=== PATIENT | female | born 1955 | race Caucasian/White ===

== ENCOUNTER 2022-04-03 21:25 | Emergency (ER) | payer OTHER ==
--- OUTSIDE RECORDS SUMMARY | 2022-04-03 21:28 | XMS REPORT | Continuity of Care Document ---
:1955 Author Organization [facility] t Address [address] [place] [address] Care Team Providers Name Role Phone Nely Munroe DO Attending Clinician NELY MUNROE Attending Clinician Unavailable Payers Payer Name Policy Type Policy Number Effective Date Expiration Date Juan Carlos benavidez [employer] [facility] [employer] [id number] 2021 (MEDICARE 00:00:00 REPLACEMENT HMO) Problems Condition Condition Condition Status Onset Resolution Last Treating Co mments Source Name Details Category Date Date Treatment Clinician Date No known No known Disease Unive rs active active ity of problems problems [facility] Allergies, Adverse Reactions, Alerts Allergy Allergy Status Severity Reaction(s) Onset Inactive Treating Comm ents Source Name Type Date Date Clinician NO KNOWN Drug Active Univers ALLERGIE Class ity of S [facility] Social History Social Habit Start Date Stop Date Quantity Comments Source Sex Assigned At Uni versity [facility] Smoking Status Start Date Stop Date Source Unknown if ever smoked Universit y [facility] Medications Ordered Filled Start Stop Current Ordering Indication Dosage Frequency Signature Comments Components Source Medication Medication Date Date Medication? Clinician (SIG) Name Name tetanus-dip 2020- No .5mL 0.5 mL, Un rolando htheria 08-29 Intramuscu ity o f toxoids 04:30: 03:30 lar, ONCE, Sanya as (TDVAX) 2-2 00 :00 1 dose, Medic al Lf unit/0.5 Fri Branch mL 08/29/19 at injection 2330, 0.5 mL Routine No known No Univers medications [facility] Immunizations Ordered Filled Immunization Date Status Comments Sourc e Immunization Name Name Td 2019-08-29 Completed [facility] 00:00:00 [facility] Vital Signs Vital Name Observation Time Observation Value Comments Source Systolic blood 2019-08-30 04:28:00 138 mm[Hg] Univer sity of pressure [facility] Diastolic blood 2019-08-30 04:28:00 74 mm[Hg] Unive rsity of pressure [facility] Heart rate 2019-08-30 04:28:00 79 /min [facility] Body temperature 2019-08-30 04:28:00 37.[address] [facility] Respiratory rate 2019-08-30 04:28:00 16 /[facility] saturation in 2019-08-30 04:28:00 98 /min [facility] Arterial blood by [facility] Pulse oximetry Branch BMI 2019-08-30 03:13:11 24.45 kg/m2 [facility] Body height 2019-08-30 03:13:11 160 cm [facility] Body weight 2019-08-30 03:13:11 62.596 kg [facility] Procedures This patient has no known procedures. Encounters Start End Encounter Admission Attending Care Care Encounter Source Date/Time Date/Time Type Type Clinicians Facility Department ID 2021-03-30 2021-03-30 [place] [facility] [id number] [facility] 11:01:00 11:01:00 1117 Medica l Group 2019-08-29 2019-08-29 Emergency FANG Munroe [id number] Univers 22:12:02 23:40:00 [id number] [id number] [facility] 084 Branch 2019-08-29 2019-08-29 Emergency X FANG MUNROE ERT [id number] Univers 22:12:02 22:12:02 NELY bonilla [facility] Results This patient has no known results.
[2022-04-03 22:44] LABS: Urine Blood 1+ (Negative); Urine Glucose Negative (Negative); Urine Protein Negative (Negative); Urine Specific Gravity 1.025 (1.005-1.030); Urine pH 6.5 (5.0-7.0)
[2022-04-03] MEDS ORDERED: MECLIZINE HCL 12.5 MG TAB ONE (22:53)
[2022-04-03 22:54] LABS: Absolute Lymphocytes (CBC) 3.1 K/uL (0.7-4.9); Hematocrit 39.3 % (36.0-45.0); Lymphocytes % 42.8 % (15.3-44.8); MCV 92.1 fL (80-100); MPV 6.9 fL (7.6-11.3); RBC Red Blood Cell Count 4.27 M/uL (3.86-4.86)
[2022-04-03 22:55] LABS: Protime INR 0.91
[2022-04-03 22:57] LABS: Urine Bacteria >50 /HPF (<20); Urine Mucus Slight /HPF (None Seen)
[2022-04-03 23:08] LABS: Magnesium 2.1 mg/dL (1.8-2.4); Potassium 4.2 mmol/L (3.5-5.1); Troponin High Sensitivity 57.4 pg/mL (<58.9)
[2022-04-04] MEDS ORDERED: NA CHLORIDE 0.9% 500 ML ONE (00:30)
[2022-04-04] MEDS ORDERED: CEFTRIAXONE 1000 MG/VIAL ONE (00:30)
--- NOTE | 2022-04-04 01:02 | EDPHYS ---
Physician Documentation [facility] Name: Sherri Saul Age: 67 yrs Sex: Female : 1955 Arrival Date: 04/03/2022 Time: 21:27 Bed 7 Private MD: ED Physician Bartolome Leonard HPI: 04/03 22:20 This 67 yrs old Female presents to ER via Ambulatory with complaints of Dizziness, High cp Blood Pressure, Nausea. 22:20 The patient presents with dizziness, lightheadedness, feeling off balance. Onset: The cp symptoms/episode began/occurred today, about 1830. Context: just prior to the episode the patient experienced no apparent symptoms. 22:20 Associated signs and symptoms: Pertinent positives: nausea, elevated blood pressure, cp Pertinent negatives: abdominal pain, blurred vision, chest pain, confusion, focal weakness, near-syncope, shortness of breath, syncope. 22:20 Severity of symptoms: in the emergency department the symptoms have improved mildly. cp Patient's baseline: Neuro: alert and fully oriented, Motor: no deficits, Ambulation: walks without assistance, Speech: normal. Historical: - Allergies: 21:41 No Known Allergies; jh5 - Immunization history:: Adult Immunizations up to date. - Social history:: Smoking status: Patient reports the use of cigarette tobacco products, smokes one-half pack cigarettes per day. ROS: 22:25 Constitutional: Negative for body aches, chills, fever, poor PO intake. cp 22:25 Eyes: Negative for injury, pain, redness, and discharge. cp 22:25 ENT: Negative for drainage from ear(s), ear pain, sore throat, difficulty swallowing, difficulty handling secretions. 22:25 Cardiovascular: Negative for chest pain, edema, palpitations. 22:25 Respiratory: Negative for cough, shortness of breath, wheezing. 22:25 Abdomen/GI: Negative for abdominal pain, vomiting, diarrhea, constipation. 22:25 : Positive for burning with urination, Negative for hematuria. 22:25 Neuro: Positive for dizziness, Negative for altered mental status, headache, numbness, speech changes, syncope, near syncope, weakness. 22:25 All other systems are negative. Exam: 22:30 Constitutional: The patient appears in no acute distress, alert, awake, comfortable, cp non-diaphoretic, non-toxic, well developed, well nourished. 22:30 Head/Face: Normocephalic, atraumatic. cp 22:30 Eyes: Periorbital structures: appear normal, Pupils: equal, round, and reactive to light and accomodation, Extraocular movements: intact throughout, Conjunctiva: normal, no exudate, no injection, Sclera: no appreciated abnormality, Lids and lashes: appear normal, bilaterally. 22:30 ENT: External ear(s): are unremarkable, Ear canal(s): are normal, clear, TM's: dullness, bilaterally, Nose: is normal, Mouth: Lips: moist, Oral mucosa: pink and intact, moist, Posterior pharynx: Airway: no evidence of obstruction, patent, erythema, is not appreciated, exudate, is not appreciated. 22:30 Neck: ROM/movement: is normal, is supple, without pain, no range of motions limitations. 22:30 Chest/axilla: Inspection: normal. 22:30 Cardiovascular: Rate: normal, Rhythm: regular, Edema: is not appreciated, JVD: is not appreciated. 22:30 Respiratory: the patient does not display signs of respiratory distress, Respirations: normal, no use of accessory muscles, no retractions, labored breathing, is not present, Breath sounds: are clear throughout, no decreased breath sounds, no stridor, no wheezing. 22:30 Abdomen/GI: Inspection: abdomen appears normal, Palpation: abdomen is soft and non-tender, in all quadrants. 22:30 Back: pain, is absent, ROM is normal. 22:30 Neuro: Orientation: to person, place \T\ time. Mentation: is normal, Cerebellar function: is grossly normal, Motor: moves all fours, strength is normal, Sensation: is normal, Gait: is steady. 23:05 ECG was reviewed by the Attending Physician. cp Vital Signs: 21:38 BP 143 / 89; Pulse 76; Resp 16; Temp 98.7; Pulse Ox 100% ; Weight 68.04 kg; Height 5 jh5 ft. 3 in. (160.02 cm); Pain 0/10; 23:14 BP 159 / 81; Pulse 71; Resp 19; Pulse Ox 99% on R/A; kd3 04/04 01:05 BP 152 / 69; Pulse 73; Resp 19; Pulse Ox 99% ; kd3 04/03 21:38 Body Mass Index 26.57 (68.04 kg, 160.02 cm) jh5 NIH Stroke Scale Scores: 04/03 22:30 NIHSS Score: 0 cp MDM: 21:58 Patient medically screened. cp 23:00 Differential diagnosis: cardiac arrhythmia, CVA, GI bleed, hypovolemia, idiopathic cp dizziness, sepsis, TIA. 04/04 00:18 ED course: Patient reports dizziness markedly improved and observed to ambulate to restroom w/o assistance. 01:00 Data reviewed: vital signs, nurses notes, lab test result(s), EKG, radiologic studies, cp CT scan, plain films. 01:00 Test interpretation: by ED physician or midlevel provider: ECG, plain radiologic cp studies. Counseling: I had a detailed discussion with the patient and/or guardian regarding: the historical points, exam findings, and any diagnostic results supporting the discharge/admit diagnosis, lab results, radiology results, the need for outpatient follow up, a family practitioner, to return to the emergency department if symptoms worsen or persist or if there are any questions or concerns that arise at home. Response to treatment: the patient's symptoms have markedly improved after treatment, and as a result, I will discharge patient. 04/03 22:13 Order name: Basic Metabolic Panel; Complete Time: 23:13 04/03 23:13 Interpretation: Normal except: GFR 55. 04/03 22:13 Order name: CBC with Diff; Complete Time: 23:13 04/03 23:14 Interpretation: Normal except: MPV 6.9. 04/03 22:13 Order name: Magnesium; Complete Time: 23:13 04/03 22:13 Order name: PT-INR; Complete Time: 22:59 04/03 22:13 Order name: Troponin HS; Complete Time: 23:13 04/03 23:14 Interpretation: Troponin HS 57.4; Reviewed. 04/03 22:13 Order name: Urine Microscopic Only; Complete Time: 22:59 04/03 22:59 Interpretation: URBC 11-20; UBACT >50. 04/03 22:13 Order name: XRAY Chest (1 view) 04/03 22:13 Order name: CT Head Brain wo Cont 04/03 22:13 Order name: CT Head Angio 04/03 22:13 Order name: CT Neck Angio cp 04/03 22:44 Order name: Urine Dipstick-Ancillary; Complete Time: 22:59 EDMS 04/03 22:59 Interpretation: Normal except: UBLD 1+; UNIT Positive. cp 04/03 22:13 Order name: EKG; Complete Time: 22:13 cp 04/03 22:13 Order name: Cardiac monitoring; Complete Time: 23:06 cp 04/03 22:13 Order name: EKG - Nurse/Tech; Complete Time: 23:06 cp 04/03 22:13 Order name: IV Saline Lock; Complete Time: 22:45 cp 04/03 22:13 Order name: Labs collected and sent; Complete Time: 22:45 cp 04/03 22:13 Order name: O2 Per Protocol; Complete Time: 22:45 cp 04/03 22:13 Order name: O2 Sat Monitoring; Complete Time: 22:45 cp 04/03 22:13 Order name: Urine Dipstick-Ancillary (obtain specimen); Complete Time: 22:45 cp EC/21 23:05 Rate is 68 beats/min. Rhythm is regular. LA interval is normal. QRS interval is normal. cp QT interval is normal. T waves are Inverted in leads II, aVR. Interpreted by me. Reviewed by me. Administered Medications: 23:06 Drug: Meclizine 25 mg Route: PO; kd3 04/04 01:06 Follow up: Response: No adverse reaction kd3 00:34 Drug: Rocephin (cefTRIAXone) 1 grams Route: IV; Rate: calculated rate; Site: right 3 antecubital; 01:06 Follow up: Response: No adverse reaction; IV Status: Completed infusion kd3 00:34 Drug: NS 0.9% 500 ml Route: IV; Rate: bolus; Site: right antecubital; kd3 01:06 Follow up: IV Status: Completed infusion; IV Intake: 500ml kd3 Disposition Summary: 04/04/22 01:02 Discharge Ordered Location: Home cp Problem: new cp Symptoms: have improved cp Condition: Stable cp Diagnosis - Elevated blood-pressure reading, without diagnosis of hypertension cp - Dizziness and giddiness cp - UTI/ Urinary tract infection, site not specified cp Followup: cp - With: Private Physician - When: 1 - 2 days - Reason: Recheck today's complaints Discharge Instructions: - Discharge Summary Sheet cp - Dizziness cp - Urinary Tract Infection, Adult cp - How to Take Your Blood Pressure cp Forms: - Medication Reconciliation Form cp - Thank You Letter cp - Antibiotic Education cp - Prescription Opioid Use cp Prescriptions: - Meclizine 25 mg Oral Tablet - take 1 tablet by ORAL route every 8 hours As needed; 30 tablet; Refills: 0, cp Product Selection Permitted - Zofran 4 mg Oral Tablet - take 1 tablet by ORAL route every 12 hours As needed; 20 tablet; Refills: 0, cp Product Selection Permitted - cefpodoxime 100 mg Oral Tablet - take 1 tablet by ORAL route every 12 hours for 7 days take with food; 14 cp tablet; Refills: 0, Product Selection Permitted NIH Stroke Scale - NIH Stroke Score Date: 04/03/2022 Time: 22:30 Total Score = 0 1a. Level of Consciousness (LOC) - 0(Alert) 1b. Level of Consciousness (LOC) (Month \T\ Age) - 0(Both) 1c. LOC Commands (Open \T\ Closes Eyes/Manugrapher) - 0(Both) 2. Best Gaze (Lateral Gaze Paresis) - 0(Normal) 3. Visual Field Loss - 0(No visual loss) 4. Facial Palsy - 0(Normal) 5a. Left Arm: Motor (10-second hold) - 0(No drift) 5b. Right Arm: Motor (10-second hold) - 0(No drift) 6a. Left Leg: Motor (5-second hold - always test supine) - 0(No drift) 6b. Right Leg: Motor (5-second hold - always test supine) - 0(No drift) 7. Limb Ataxia (finger/nose \T\ heel/waller - test with eyes open) - 0(Absent) 8. Sensory Loss (pinprick arms/legs/face) - 0(Normal) 9. Best Language: Aphasia (description/naming/reading) - 0(No aphasia) 10. Dysarthria (speech clarity - read or repeat words) - 0(Normal) 11. Extinction and Inattention (visual/tactile/auditory/spatial/personal) - 0(No abnormality) Initials: cp Signatures: Dispatcher [employer] EDMS Bartolome Douglas PA PA cp Rees, Jessica RN RN jh5 Charisse, Tammy, RN RN kd3
--- NOTE | 2022-04-04 01:02 | ER ---
Nurse's Notes [facility] Name: Sherri Saul Age: 67 yrs Sex: Female : 1955 Arrival Date: 04/03/2022 Time: 21:27 Bed 7 Private MD: Diagnosis: Elevated blood-pressure reading, without diagnosis of hypertension;Dizziness and giddiness;UTI/ Urinary tract infection, site not specified Presentation: 04/03 21:38 Chief complaint: Patient states: dizziness x3 hours and high blood pressure, i took jh5 650mg of aspirin at 2044. Coronavirus screen: Vaccine status: Patient reports being unvaccinated. Client denies travel out of the [place] in the last 14 days. Ebola Screen: Patient negative for fever greater than or equal to 101.5 degrees Fahrenheit, and additional compatible Ebola Virus Disease symptoms Patient denies exposure to infectious person. Patient denies travel to an Ebola-affected area in the 21 days before illness onset. Initial Sepsis Screen: Does the patient meet any 2 criteria? No. Patient's initial sepsis screen is negative. Does the patient have a suspected source of infection? No. Patient's initial sepsis screen is negative. Risk Assessment: Do you want to hurt yourself or someone else? Patient reports no desire to harm self or others. 21:38 Method Of Arrival: Ambulatory [facility] 21:38 Acuity: MIKE 3 5 23:14 Onset of symptoms was April 03, 2022. kd3 Triage Assessment: 21:41 General: Appears in no apparent distress. comfortable, slender, well groomed, well jh5 developed, well nourished, Behavior is calm, cooperative, appropriate for age. Pain: Denies pain. GI: Reports nausea. Historical: - Allergies: 21:41 No Known Allergies; jh5 - Immunization history:: Adult Immunizations up to date. - Social history:: Smoking status: Patient reports the use of cigarette tobacco products, smokes one-half pack cigarettes per day. Screenin:14 Abuse screen: Denies threats or abuse. Denies injuries from another. Nutritional kd3 screening: No deficits noted. Tuberculosis screening: No symptoms or risk factors identified. Fall Risk None identified. IV access (20 points). Assessment: 23:13 General: Appears in no apparent distress. Behavior is calm, cooperative. Neuro: Level kd3 of Consciousness is awake, alert, obeys commands, Oriented to person, place, time, situation, Reports dizziness. Cardiovascular: Patient's skin is warm and dry. Respiratory: Airway is patent Trachea midline Respiratory effort is even, unlabored, Respiratory pattern is regular, symmetrical. GI: Abdomen is non-distended. Vital Signs: 21:38 BP 143 / 89; Pulse 76; Resp 16; Temp 98.7; Pulse Ox 100% ; Weight 68.04 kg; Height 5 5 ft. 3 in. (160.02 cm); Pain 0/10; 23:14 BP 159 / 81; Pulse 71; Resp 19; Pulse Ox 99% on R/A; kd3 04/04 01:05 BP 152 / 69; Pulse 73; Resp 19; Pulse Ox 99% ; kd3 04/03 21:38 Body Mass Index 26.57 (68.04 kg, 160.02 cm) 5 NIH Stroke Scale Scores: 04/03 22:30 NIHSS Score: 0 cp ED Course: 21:27 Patient arrived in ED. jj6 21:41 Triage completed. jh5 21:41 Arm band placed on right wrist. jh5 21:55 Aiden Cardenas, NOEMI is Primary Nurse. as6 21:58 Bartolome Douglas PA is PHCP. cp 21:58 Bartolome Leonard MD is Attending Physician. cp 22:45 Urine Microscopic Only Sent. kd3 22:45 Troponin HS Sent. kd3 22:45 PT-INR Sent. kd3 22:45 Magnesium Sent. kd3 22:45 CBC with Diff Sent. kd3 22:45 Basic Metabolic Panel Sent. kd3 22:54 XRAY Chest (1 view) In Process Unspecified. EDMS 23:14 Patient has correct armband on for positive identification. kd3 23:14 No provider procedures requiring assistance completed. Inserted saline lock: 22 gauge kd3 in right antecubital area, using aseptic technique. Blood collected. 23:55 CT Head Brain wo Cont In Process Unspecified. EDMS 23:55 CT Head Angio In Process Unspecified. EDMS 23:55 CT Neck Angio In Process Unspecified. EDMS 04/04 01:05 IV discontinued, intact, bleeding controlled, No redness/swelling at site. Pressure kd3 dressing applied. Administered Medications: 04/03 23:06 Drug: Meclizine 25 mg Route: PO; kd3 04/04 01:06 Follow up: Response: No adverse reaction kd3 00:34 Drug: Rocephin (cefTRIAXone) 1 grams Route: IV; Rate: calculated rate; Site: right [facility] antecubital; 01:06 Follow up: Response: No adverse reaction; IV Status: Completed infusion kd3 00:34 Drug: NS 0.9% 500 ml Route: IV; Rate: bolus; Site: right antecubital; kd3 01:06 Follow up: IV Status: Completed infusion; IV Intake: 500ml kd3 Medication: 04/03 23:14 VIS not applicable for this client. kd3 Intake: 04/04 01:06 IV: 500ml; Total: 500ml. kd3 Outcome: 01:02 Discharge ordered by . cp 01:05 Discharged to home via wheelchair. kd3 01:05 Condition: stable 01:05 Discharge instructions given to patient, family, Instructed on discharge instructions, follow up and referral plans. Demonstrated understanding of instructions, follow-up care, medications, Prescriptions given X 01:14 Patient left the ED. kd3 NIH Stroke Scale - NIH Stroke Score Date: 04/03/2022 Time: 22:30 Total Score = 0 1a. Level of Consciousness (LOC) - 0(Alert) 1b. Level of Consciousness (LOC) (Month \T\ Age) - 0(Both) 1c. LOC Commands (Open \T\ Closes Eyes/Compress Trucker) - 0(Both) 2. Best Gaze (Lateral Gaze Paresis) - 0(Normal) 3. Visual Field Loss - 0(No visual loss) 4. Facial Palsy - 0(Normal) 5a. Left Arm: Motor (10-second hold) - 0(No drift) 5b. Right Arm: Motor (10-second hold) - 0(No drift) 6a. Left Leg: Motor (5-second hold - always test supine) - 0(No drift) 6b. Right Leg: Motor (5-second hold - always test supine) - 0(No drift) 7. Limb Ataxia (finger/nose \T\ heel/waller - test with eyes open) - 0(Absent) 8. Sensory Loss (pinprick arms/legs/face) - 0(Normal) 9. Best Language: Aphasia (description/naming/reading) - 0(No aphasia) 10. Dysarthria (speech clarity - read or repeat words) - 0(Normal) 11. Extinction and Inattention (visual/tactile/auditory/spatial/personal) - 0(No abnormality) Initials: cp Signatures: Dispatcher [employer] EDBartolome Macias PA PA cp Jeffries, Jennifer jj6 Lin Oden, RN RN jh5 Aiden Cardenas RN RN as6 Tammy Mcqueen RN RN kd3
[2022-04-04 01:17] VITALS: TEMP 98.7
[2022-04-04 01:19] VITALS: O2SAT 99
[2022-04-04 01:20] VITALS: BP 152/69
--- NOTE | 2022-04-04 13:19 | RAD REPORT ---
EXAM DESCRIPTION: CT - Head angio - 04/04/2022 6:39 am CLINICAL HISTORY: 67 years, Female, Dizziness, non-specific COMPARISON: Previous CT scan of the head performed 04/03/2022 11:28 PM. TECHNIQUE: Multiple transaxial tomograms from the aortic arch through the brain were performed after administration of large bolus of IV contrast for complete opacification of the carotid arteries and intracranial vessels. Subsequent 2-D and 3-D multiplanar reformats, volume rendering technique and maximum intensity projec tion images were generated and reviewed. Stenosis measurements were performed according to NASCET cri sj. CAROTID STENOSIS REFERENCE USING NASCET CRITERIA: % ICA stenosis = (1 - narrowest ICA diameter/diameter of distal cervical ICA) x 100. Mild - <50% stenosis. Moderate - 50-69% stenosis. Severe - 70-94% stenosis. Near occlusion - 95-99% stenosis. Occluded - 100% stenosis. This exam was performed according to our departmental dose-optimization protocol, which includes auto mated exposure control, adjustment of the mA and/or kV according to patient size and/or use of iterat marita reconstruction technique. FINDINGS: Ascending aorta: The aortic arch were also not imaged there is normal appearance of the proximal aspect of the great vessels. No great vessel stenosis is identified. There are codominant vertebral arteries which demonstrate normal opacification. Right carotid artery: Normal opacification is demonstrated within the right common carotid artery a nd at the carotid bifurcation. The right carotid bulb demonstrate to be within normal limits. There i s no evidence for significant stenosis. The proximal, mid and distal portions of the right internal c arotid artery demonstrate to be patent. There is no evidence for significant stenosis and/or occlusio n. Left carotid artery: Normal opacification is demonstrated within the left common carotid artery an d at the carotid bifurcation. The left carotid bulb demonstrate to be within normal limits. There is no evidence for significant stenosis. The proximal, mid and distal portions of the left internal fry tid artery demonstrate to be patent. There is no evidence for significant stenosis and/or occlusion. Intracranial circulation: Intracranial portions of the internal carotid arteries the cavernous sinus portions demonstrates no focal areas of significant stenosis/or aneurysm. The anterior cerebral art eries, middle cerebral arteries and its branches demonstrate normal opacification with no evidence fo r significant stenosis aneurysm and/or occlusion. There is normal venous drainage with no evidence fo r significant sinus vein thrombosis. Vertebrobasilar system: The posterior circulation demonstrate codominant bilateral vertebral arteries with no evidence for significant stenosis and/or evidence for significant dissection. The vertebroba silar system and FERMENTER OPERATOR demonstrate to be normal with no evidence for aneurysm and/or occlusion. Grossly the brain parenchyma demonstrate normal juan-white matter differentiation with no evidence fo r mass effect and/or midline shift. The skull base and intracranial structures demonstrate to be within normal limits. There is minimal o pacification left posterior sphenoid sinus. Lung apex: No gross abnormalities are noted within the apices. IMPRESSION: No evidence for significant stenosis and/or occlusion involving the cervical carotid or vertebral arteries. Unremarkable CTA of the head with no evidence for significant stenosis, aneurysm, and/or occlusion. Minimal opacification of the left posterior sphenoid sinus. Electronically signed by: Delio Greene MD 04/04/2022 12:36 AM HEALTHCARE CONSULTANT Due to temporary technical issues with the PACS/Fluency reporting system, reports are being signed by the in house radiologists without review as a courtesy to insure prompt reporting. The interpreting radiologist is fully responsible for the content of the report.
--- NOTE | 2022-04-04 13:47 | EKG ---
Test Date: 2022-04-03 Test Time: 23:01:05 Pathology Specialist: RAVINDRA MEASUREMENT RESULTS: Intervals: Rate: 68 NC: 190 QRSD: 86 QT: 394 QTc: 418 [place]: P: 63 NC: 190 QRS: 58 T: 68 INTERPRETIVE STATEMENTS: Normal sinus rhythm Nonspecific T wave abnormality Abnormal ECG No previous ECG available for comparison Electronically Signed On 04-04-22 13:46:37 SUPERVISOR LOADING by Neal Bowles
--- NOTE | 2022-04-04 13:48 | RAD REPORT ---
EXAM DESCRIPTION: CT - Neck Angio - 04/04/2022 6:38 am CLINICAL HISTORY: 67 years, Female, Dizziness, non-specific COMPARISON: Previous CT scan of the head performed 04/03/2022 11:28 PM. TECHNIQUE: Multiple transaxial tomograms from the aortic arch through the brain were performed after administration of large bolus of IV contrast for complete opacification of the carotid arteries and intracranial vessels. Subsequent 2-D and 3-D multiplanar reformats, volume rendering technique and maximum intensity projec tion images were generated and reviewed. Stenosis measurements were performed according to NASCET cri sj. CAROTID STENOSIS REFERENCE USING NASCET CRITERIA: % ICA stenosis = (1 - narrowest ICA diameter/diameter of distal cervical ICA) x 100. Mild - <50% stenosis. Moderate - 50-69% stenosis. Severe - 70-94% stenosis. Near occlusion - 95-99% stenosis. Occluded - 100% stenosis. This exam was performed according to our departmental dose-optimization protocol, which includes auto mated exposure control, adjustment of the mA and/or kV according to patient size and/or use of iterat marita reconstruction technique. FINDINGS: Ascending aorta: The aortic arch were also not imaged there is normal appearance of the proximal aspect of the great vessels. No great vessel stenosis is identified. There are codominant vertebral arteries which demonstrate normal opacification. Right carotid artery: Normal opacification is demonstrated within the right common carotid artery a nd at the carotid bifurcation. The right carotid bulb demonstrate to be within normal limits. There i s no evidence for significant stenosis. The proximal, mid and distal portions of the right internal c arotid artery demonstrate to be patent. There is no evidence for significant stenosis and/or occlusio n. Left carotid artery: Normal opacification is demonstrated within the left common carotid artery an d at the carotid bifurcation. The left carotid bulb demonstrate to be within normal limits. There is no evidence for significant stenosis. The proximal, mid and distal portions of the left internal fry tid artery demonstrate to be patent. There is no evidence for significant stenosis and/or occlusion. Intracranial circulation: Intracranial portions of the internal carotid arteries the cavernous sinus portions demonstrates no focal areas of significant stenosis/or aneurysm. The anterior cerebral art eries, middle cerebral arteries and its branches demonstrate normal opacification with no evidence fo r significant stenosis aneurysm and/or occlusion. There is normal venous drainage with no evidence fo r significant sinus vein thrombosis. Vertebrobasilar system: The posterior circulation demonstrate codominant bilateral vertebral arteries with no evidence for significant stenosis and/or evidence for significant dissection. The vertebroba silar system and PLEATING SUPERVISOR demonstrate to be normal with no evidence for aneurysm and/or occlusion. Grossly the brain parenchyma demonstrate normal juan-white matter differentiation with no evidence fo r mass effect and/or midline shift. The skull base and intracranial structures demonstrate to be within normal limits. There is minimal o pacification left posterior sphenoid sinus. Lung apex: No gross abnormalities are noted within the apices. IMPRESSION: No evidence for significant stenosis and/or occlusion involving the cervical carotid or vertebral arteries. Unremarkable CTA of the head with no evidence for significant stenosis, aneurysm, and/or occlusion. Minimal opacification of the left posterior sphenoid sinus. Electronically signed by: Delio Greene MD 04/04/2022 12:36 AM ART CONSERVATOR Due to temporary technical issues with the PACS/Fluency reporting system, reports are being signed by the in house radiologists without review as a courtesy to insure prompt reporting. The interpreting radiologist is fully responsible for the content of the report.
--- NOTE | 2022-04-04 14:33 | RAD REPORT ---
EXAM DESCRIPTION: CT - Head Brain Wo Cont - 04/04/2022 6:39 am CLINICAL HISTORY: 67 years Female dizziness TECHNIQUE: Contiguous axial CT images obtained through the brain without IV contrast. Coronal and sa gittal reformats also provided. This CT exam was performed according to our departmental dose-optimization program, which includes on e or more of the following dose reduction techniques: automated exposure control, adjustment of the m A and/or kV according to patient size, and/or use of iterative reconstruction technique. COMPARISON: No prior exams provided for comparison. FINDINGS: There is no intracranial hemorrhage, extra-axial collection, or acute transcortical infarc tion. The ventricles are normal in size and contour without mass-effect or midline shift. Osseous structures are normal. The paranasal sinuses and mastoid air cells are clear. IMPRESSION: No acute intracranial abnormalities. Electronically signed by: Christy Prabhakar MD 04/04/2022 12:25 AM DIVING INSTRUCTOR Due to temporary technical issues with the PACS/Fluency reporting system, reports are being signed by the in house radiologists without review as a courtesy to insure prompt reporting. The interpreting radiologist is fully responsible for the content of the report.
--- NOTE | 2022-04-04 15:20 | RAD REPORT ---
EXAM DESCRIPTION: RAD - Chest Single View - 04/03/2022 10:52 pm CLINICAL HISTORY: 67 years, Female, dizziness COMPARISON: None. FINDINGS: Single view of the chest was obtained portable. No prior films are available for compariso n. The cardiomediastinal silhouette demonstrate to be unremarkable. The heart is is in the upper norm al size. The thoracic aorta is mildly tortuous. The pulmonary vasculature is normal distribution. Cos tophrenic angles are sharp. No areas of consolidation or masses are seen. The rest of the soft ti ssue and bony structures demonstrate to be unremarkable. IMPRESSION: No acute cardiopulmonary disease seen. Heart and the upper normal size. Electronically signed by: Delio Greene MD 04/03/2022 11:44 PM MACHINE CLEANER Due to temporary technical issues with the PACS/Fluency reporting system, reports are being signed by the in house radiologists without review as a courtesy to insure prompt reporting. The interpreting radiologist is fully responsible for the content of the report.
== END 2022-04-04 01:14 | disposition home or self-care (01) ==
LOC: ER 21:25
DX: N39.0 Urinary tract infection, site not specified (principal); R03.0 Elevated blood-pressure reading, without diagnosis of hypertension; F17.210 Nicotine dependence, cigarettes, uncomplicated
CPT/HCPCS: 93005; 85025; 80048; 36415; 83735; 85610; 84484; 70450; 70496; 70498; 71045; Q9967; J8597; J7040; 81003; 81015